=== PATIENT | female | born 1970 | race Asian ===

== ENCOUNTER 2023-08-22 19:47 | Emergency (ER) | payer OTHER, SELFPAY ==
[2023-08-22 19:49] VITALS: BP 180/114
--- NOTE | 2023-08-22 22:34 | ED.GENMED ---
History of Present Illness
General
Chief Complaint: Skin Surface Trauma
Source: patient
Exam Limitations: none
Time Seen by Provider: 08/22/23 20:48
Travel History
Have you had any contact with someone who has COVID-19?: No
Do you have any symptoms of coronavirus? Fever > 100 degrees, chills, cough, shortness of breath, sore throat, loss of taste or smell, muscle aches, or headache?: No
History of Present Illness
History of Present Illness:
52 y/o F right hand dominant
here with right middle finger laceration from crush injury when she was carrying heavy bookshelf that dropped
she has a laceration to the fingertip and near amputation
denies numbness
+ pain
bleeding cnotrolled
tetanus not up to date
Past History
Past History
ED Past Medical History: None
ED Past Surgical History: Orthopedic (trigger finger)
Social History
Tobacco: Non-smoker
Alcohol: None
Review of Systems
Review of Systems
Allergies reviewed?: Yes
All Other Systems: Not applicable
Phy Exam
Physical Exam
Physical Exam:
GENERAL: Alert , in no apparent distress, comfortable at rest
HEAD: NCAT
CV:
cap refill slightly delayed right tip of middle finger, but it is warm and not cool
normal radius pulse
NEUROLOGICAL: Alert and oriented, no focal neuro deficits, , 5/5 strength, sensation intact,
SKIN: Warm and dry,
Patient has a 3 cm total laceratino crush injury, macerated tissue
which includes under the nail plate with macerated nail bed laceration, and near amputation of the distal phalanx;
MUSCULOSKELETAL: pt has deformity of the fingertip with near amputation
sensation is intact distally
there is some mild duskiness of the fat pad tissue
pt has flextion dip 20 degrees
PSYCH: Normal and appropriate interaction.
Course
Orders/Labs/Results
Orders:
Orders
08/22/23 19:54
Finger(s)/Thumb 2 View Rt [CR Finger(s)/thumb Min 2 Vw Rt] Urgent
Comment:
Reason For Exam: deformity in right middle finger
Indicate Which Finger:: Middle Finger
08/22/23 21:39
Cephalexin Monohydrate [Keflex] 500 mg PO NOW STA
Ibuprofen [Motrin] 600 mg PO NOW STA
08/22/23 21:40
Tetanus/Diphth/Acelpertussis [Adacel] 0.5 ml IM .ONCE ONE
08/22/23 22:28
Hydrocodone 5/APAP 325 [[place] 5/325] 1 tablet PO NOW STA
Vital Signs
Initial and Last Documented VS:
Initial Vital Signs
Temp Pulse Resp BP Pulse Ox
98.1 F 106 19 180/114 95
08/22/23 19:49 08/22/23 19:49 08/22/23 19:49 08/22/23 19:49 08/22/23 19:49
Last Documented Vital Signs
Temp Pulse Resp BP Pulse Ox
98.1 F 82 19 166/93 98
08/22/23 19:49 08/22/23 22:54 08/22/23 19:49 08/22/23 22:54 08/22/23 22:54
Procedures
Laceration Closure
Right Distal Third Finger(s):
Status of Wound: other (clean, macerated)
Size of Wound in cm: 2
Description of Wound Edges: ragged, flap-poorly vascularized (mildly dusky) and macerated
Preparation: cleaned with saline
Anesthesia: 1% Lidocaine and Digital-Regional
Revision/Debridement: minor revision and irrigate-direct pressure
Wound exploration: explored to base- no FB and no tendon involvement
Type of Closure: single layer closure
Skin Closure Material: 5-0 nylon
Number of sutures: 6
MDM/Problems Addressed
Differential Diagnosis Includes:
distla phalanx fx, open fracture,
MDM/Problems Addressed:
52 y/o F with righ thand ominance
here with right middle finger laceration, near amputation of the finger tip from crush injury
pt has maceration laceration and near avulsion of th efingerip
it is slightly dusky but has sensation
tetanus updated
xray indep reviewed by me and has avulsion fx of the distal phalanx
i spoke with dr. kahn hand surgery who recommended closure of the skin and he would see tomorrow
i performed digital block and closed skin as best as possible, tucked the nail plate into the nail fold
pt will have prompt f/u wiht hand surgery
xeroform dressing applied
bulky dressing acting as splint
bleeidng controlled
pain meds, abx
*Critical Care Note
Total Time (30-74mins, 75-104mins- exclusive of procedures): Not Applicable
ED Attending Note
-
Portions of this chart may have been created with voice recognition software.� Occasional wrong word or��sound alike� substitutions may have occurred due to the inherent limitations of voice recognition software.
Discharge Plan
Departure
Patient Disposition: Home (Routine Discharge)
Date of Disposition: 08/22/23
Time of Disposition: 22:29
Patient with high blood pressure during this ER visit?: Yes
Condition: Fair
Covid-19: Not Applicable
Discharge Problem:
Laceration of finger, Fracture of distal phalanx of finger
Instructions: Laceration Repair With Stitches (DC)
Prescriptions:
New
cephalexin 500 mg capsule
500 mg PO QID Qty: 28 0RF
hydrocodone-acetaminophen 5-325 mg tablet
1 tab PO BID PRN (Reason: Pain) Qty: 7 0RF
Referrals:
Usman Love CRNP [Family Provider] - Follow up in 5-7 days
Kamaljit Kahn MD [Active] - Tomorrow
Activity Restrictions/Additional Instructions:
KEEP THE WOUND CLEAN AND DRY FOR 24 HOURS
AFTER THAT YOU CAN GET IT WET IN THE BATH/SHOWER ONCE A DAY AND MAKE SURE IT IS CLEAN AND THERE IS NO DRIED BLOOD ON THE STITCHES
APPLY NEOSPORIN AND A BANDAID
DR KAHN WILL SEE YOU TOMORROW, CALL THE OFFICE FOR AN APPOINTMENT IN THE MORNING
TELLT HEM I SPOKE WITH DR. KAHN AND HE WANTED TO SEE YOU TOMORROW
THE STITCHES NEED TO BE REMOVED IN ABOUT 7-10 DAYS, SEE YOUR DOCTOR FOR THIS.
TAKE KEFLEX EVERY 6 HOURS 4 TIMES A DAY FOR INFECTION FOR 7 DAYS
TAKE MOTRIN EVERY 8H OURS FOR PAIN
FOR MORE SEVERE PAIN YOU CAN TRY VICODIN EVERY 6 HOURS, THIS IS A NARCOTIC, AND CAN MAKE YOU SLEEPY
WATCH FOR SIGNS OF INFECTION AND RETURN NEEDED FOR PAIN, SWELLING, REDNESS, DRAINAGE, BLEEDING.
MOTRIN NEEDED FOR PAIN.
Interventions
Interventions:
*Risk Screen - Suicide Last Done: 08/22/23 19:49
*General Assessment Last Done: 08/22/23 19:49
*Neglect/Abuse Screening Last Done: 08/22/23 19:49
*ED COVID-19 Vaccine History Last Done: 08/22/23 19:49
*Nursing Disposition Last Done: 08/22/23 22:55
ED-Skin Assessment Last Done: 08/22/23 20:21
Discharge Date and Time
Discharge Date/Time: 08/22/23 22:55
Print Language: [place]
[2023-08-22] MEDS: NORCO 5/325 1 TABLET PO (22:40)
[2023-08-22] MEDS: ADACEL 0.5 ML IM (22:41)
[2023-08-22] MEDS: KEFLEX 500 MG PO (22:41)
[2023-08-22] MEDS: MOTRIN 600 MG PO (22:41)
[2023-08-22 22:54] VITALS: BP 166/93
== END 2023-08-22 22:55 | disposition home or self-care (01) ==
LOC: EMR 19:47
PROVIDERS: EMERGENCY PHYSICIAN Emergency Medicine; FAMILY PHYSICIAN Nurse Practitioner Family
DX: S62.632B Displaced fracture of distal phalanx of right middle finger, initial encounter for open fracture (principal); W23.1XXA Caught, crushed, jammed, or pinched between stationary objects, initial encounter; Z23 Encounter for immunization
CPT/HCPCS: 64450; 99284; 12001; 90471; 73140; 90715

== ENCOUNTER 2023-08-27 06:13 | Day surgery (SDC) | payer OTHER, SELFPAY ==
[2023-08-27] VITALS (11 sets, daily range): BP systolic 123–153; BP diastolic 78–88; BMI 29.1
[2023-08-27] MEDS: CELEBREX 200 MG PO (10:10)
[2023-08-27] MEDS: TYLENOL 1000 MG PO (10:10)
[2023-08-27] MEDS: NORMOSOL-R 1000 IV (10:11)
== END 2023-08-27 14:03 | disposition home or self-care (01) ==
LOC: SDS 06:13
PROVIDERS: ATTENDING PHYSICIAN Orthopaedic Surgery
DX: S68.112A Complete traumatic metacarpophalangeal amputation of right middle finger, initial encounter (principal); M86.141 Other acute osteomyelitis, right hand; Z89.022 Acquired absence of left finger(s); S67.21XA Crushing injury of right hand, initial encounter; W20.8XXA Other cause of strike by thrown, projected or falling object, initial encounter
CPT/HCPCS: 26952; 88302; 88305; 88311; 93005

== ENCOUNTER 2023-09-17 06:06 | Day surgery (SDC) | payer OTHER, SELFPAY ==
[2023-09-17] VITALS (8 sets, daily range): BP systolic 139–142; BP diastolic 84–98; BMI 28.5
[2023-09-17] MEDS: CELEBREX 200 MG PO (07:17)
[2023-09-17] MEDS: TYLENOL 1000 MG PO (07:18)
[2023-09-17] MEDS: NORMOSOL-R 1000 IV (07:31)
== END 2023-09-17 10:00 | disposition home or self-care (01) ==
LOC: SDS 06:06
PROVIDERS: ATTENDING PHYSICIAN Orthopaedic Surgery
DX: S68.112A Complete traumatic metacarpophalangeal amputation of right middle finger, initial encounter (principal); X58.XXXA Exposure to other specified factors, initial encounter
CPT/HCPCS: 15620

== ENCOUNTER → 2024-05-21 15:47 | Outpatient (REF) | payer OTHER, SELFPAY | LOC: HWWDC 15:47 | PROVIDERS: ATTENDING PHYSICIAN Obstetrics & Gynecology; FAMILY PHYSICIAN Nurse Practitioner Adult Health | DX: Z12.31 Encounter for screening mammogram for malignant neoplasm of breast (principal) | CPT/HCPCS: 77063; 77067 ==

== ENCOUNTER → 2025-01-05 12:45 | Outpatient (REF) | payer OTHER, SELFPAY | LOC: WDC 12:45 | PROVIDERS: ATTENDING PHYSICIAN Nurse Practitioner Adult Health | DX: R92.333 Mammographic heterogeneous density, bilateral breasts (principal) | CPT/HCPCS: 76641 ==